=== PATIENT | female | born 2000 | race Two or more races ===

== ENCOUNTER → 2023-11-19 | Outpatient (CLI) | payer OTHER ==
[2023-11-19 09:32] LABS: Urine Bacteria None Seen /hpf (None Seen)
[2023-11-19 09:44] LABS: Urine Blood Negative /uL (Negative); Urine Clarity Clear (Clear); Urine Color Yellow (Yellow); Urine Mucus FEW (None Seen); Urine Protein, UAD Negative (Negative); Urine Specific Gravity 1.028 (1.001-1.035); Urine Urobilinogen Normal (Negative); Urine WBC 2 /hpf (0 - 5); Urine pH 5.5 (5.0-9.0)
[2023-11-19 09:49] LABS: Basophils # (auto) 0.1 10 ^3/uL (0-0.2); Basophils % (auto) 0.6 % (0.0-2.0); Eosinophils # (auto) 0.1 10 ^3/uL (0-0.8); Eosinophils % (auto) 0.7 % (0.0-7.0); Hematocrit 42.5 % (36.0-46.0); Hemoglobin 14.7 g/dL (12.2-16.2); Lymphocytes # (auto) 1.8 10 ^3/uL (0.4-5.4); Lymphocytes % (auto) 16.6 % (10.0-50.0); Mean Corpuscular Hemoglobin 29.9 pg (28.0-32.0); Mean Corpuscular Hgb Conc. 34.5 g/dL (32.0-36.0); Mean Corpuscular Volume 86.7 fL (80.0-100.0); Monocytes # (auto) 0.5 10 ^3/uL (0-1.3); Monocytes % (auto) 4.9 % (0.0-12.0); Neutrophils # (auto) 8.3 10 ^3/uL (1.6-8.6); Neutrophils % (auto) 77.2 % (37.0-80.0); Platelet Count (auto) 192 10^3/uL (140-450); Red Cell Distribution Width 13.4 % (11.8-14.3); White Blood Cell 10.8 10^3/uL (4.4-10.8)
[2023-11-19 10:36] LABS: Alanine Aminotransferase 20 U/L (7-40); Albumin 4.6 g/dL (3.2-4.8); Alkaline Phosphatase 91 U/L (46-116); Anion Gap 5 (5-15); Aspartate Aminotransferase 12 U/L (13-40); BUN/Creatinine Ratio 16.9 (10.0-20.0); Blood Urea Nitrogen 12 mg/dL (9-23); Calcium 9.9 mg/dL (8.7-10.4); Carbon Dioxide 25 mmol/L (20-30); Chloride 109 mmol/L (98-107); Glucose 98 mg/dL (74-106); LDL Cholesterol 74 mg/dL (< 100); Potassium 4.4 mmol/L (3.5-5.1); Sodium 139 mmol/L (136-145); Triglycerides 91 mg/dL (< 150)
[2023-11-19 10:37] LABS: Bilirubin, Total 1.2 mg/dL (0.2-1.0); Cholesterol 118 mg/dL (< 200); HDL Cholesterol 37 mg/dL (40-59); Total Protein 7.6 g/dL (5.7-8.2)
== END | disposition home or self-care (01) ==
LOC: LAB 09:18
PROVIDERS: ATTEND Internal Medicine
DX: Z00.00 Encounter for general adult medical examination without abnormal findings (principal)
CPT/HCPCS: 36415; 80053; 80061; 81001; 83036; 83880; 84443; 85025

== ENCOUNTER → 2024-04-11 | Outpatient (CLI) | payer OTHER ==
[2024-04-12 07:06] LABS: HSV 1 IgG Antibody Non Reactive (Non Reactive); HSV 2 IgG Antibody Non Reactive (Non Reactive)
== END | disposition home or self-care (01) ==
LOC: LAB 12:11
PROVIDERS: ATTEND Nurse Practitioner Family
DX: Z20.2 Contact with and (suspected) exposure to infections with a predominantly sexual mode of transmission (principal)
CPT/HCPCS: 86695; 86696

== ENCOUNTER → 2024-07-26 | Day surgery (SDC) | payer OTHER, MEDICAID ==
[2024-07-22 13:02] LABS: Urine Bacteria None Seen /hpf (None Seen)
[2024-07-22 13:06] LABS: Basophils # (auto) 0.1 10 ^3/uL (0-0.2); Basophils % (auto) 0.5 % (0.0-2.0); Eosinophils # (auto) 0.1 10 ^3/uL (0-0.8); Eosinophils % (auto) 0.8 % (0.0-7.0); Hematocrit 40.8 % (36.0-46.0); Hemoglobin 13.9 g/dL (12.2-16.2); Lymphocytes % (auto) 17.7 % (10.0-50.0); Mean Corpuscular Hemoglobin 29.2 pg (28.0-32.0); Mean Corpuscular Hgb Conc. 34.2 g/dL (32.0-36.0); Mean Corpuscular Volume 85.5 fL (80.0-100.0); Monocytes # (auto) 0.6 10 ^3/uL (0-1.3); Monocytes % (auto) 4.9 % (0.0-12.0); Neutrophils # (auto) 8.7 10 ^3/uL (1.6-8.6); Neutrophils % (auto) 76.1 % (37.0-80.0); Platelet Count (auto) 194 10^3/uL (140-450); Red Blood Cells 4.77 10^6/uL (4.0-5.20); Red Cell Distribution Width 12.7 % (11.8-14.3); White Blood Cell 11.4 10^3/uL (4.4-10.8)
[2024-07-22 13:12] LABS: Urine Blood Negative /uL (Negative); Urine Clarity Clear (Clear); Urine Color Light-Yellow (Yellow); Urine Protein, UAD Negative (Negative); Urine Squamous Epithelial Cell FEW /hpf (<5); Urine Urobilinogen Normal (Negative); Urine pH 5.5 (5.0-9.0)
[2024-07-22 13:13] LABS: Urine WBC < 1 /HPF (0-5)
[2024-07-22 13:24] LABS: INR 0.97 (0.9-1.15); Partial Thromboplastin Time 26.5 SEC (24.5-34.5); Prothrombin Time 10.3 sec (9.3-11.8)
[2024-07-22 13:40] LABS: Alanine Aminotransferase 22 U/L (7-40); Albumin 4.7 g/dL (3.2-4.8); Alkaline Phosphatase 101 U/L (46-116); Anion Gap 12 (5-15); Aspartate Aminotransferase 15 U/L (13-40); BUN/Creatinine Ratio 16.7 (10.0-20.0); Bilirubin, Total 0.9 mg/dL (0.2-1.0); Blood Urea Nitrogen 11 mg/dL (9-23); Calcium 9.9 mg/dL (8.7-10.4); Carbon Dioxide 20 mmol/L (20-31); Chloride 107 mmol/L (98-107); Glucose 97 mg/dL (74-106); Potassium 3.6 mmol/L (3.5-5.1); Sodium 139 mmol/L (136-145); Total Protein 7.7 g/dL (5.7-8.2)
[~2024-07-26] VITALS: Ht 175.3 cm; Wt 92.1 kg
[~2024-07-26] MED LIST: ASPI1TAB20 PO; CEPH500C PO; DexAMETHasone SOD PHOS 10MG/1ML VIAL INJ ONE; HYDR-4902 PO; IBUP-1453 PO; METOCLOPRAMIDE HCL 5MG/ml INJ 2ml VIAL ONE; ONDANSETRON HCL 4 MG/2 ML VIAL ONE; ceFAZolin 2 GM/D5W50ml 50 ML IV ONE; fentaNYL CITRATE 100 MCG/2 ML VL ONE
[2024-07-26] MEDS: BUPIVACAINE 0.5% INJ 50ML VIAL IJ ONE (10:05)
[2024-07-26 10:30] VITALS: PULSE 85; RESP 12; TEMP 98.6; O2SAT 98
--- NOTE | 2024-07-26 10:49 | DVHOP2 ---
Operative Report - 2 Report Details Date: 07/26/24 Preop Diagnosis: Right wrist dorsal cyst ganglion Postop Diagnosis: Right wrist dorsal cyst ganglion Surgeon: Terry Rocha MD Tooth Cutter Pinion: RAMONA Winston Anesthesiologist: Dr Wadsworth Anesthesia: Mac Implant: None Consent: The patient was informed of the risks and benefits of the procedure. These include but are not limited to complications of anesthesia, postoperative infection, incomplete relief of symptoms, recurrence of symptoms, damage to blood vessels, nerves and tendons, deep venous thrombosis, pulmonary embolism and possible need for repeat surgery in the future. Complications: None Estimated Blood Loss: Less than 5 mL Indications for Surgery: The patient is a 24-year-old female who presented to the clinic with a history of right wrist pain. Clinical and radiological evaluation demonstrated small s welling on the dorsum of the wrist, this was clinically a ganglion cyst. Nonoperative and operative management options were discussed and initially recommended. She failed nonoperative management and surgery in the form of excision of the cyst was discussed with her. Benefits, risks and treatment alternatives were discussed. Specific complications of the surgery such as neurovascular injury, infection, arthrofibrosis, loss of limb or life were discussed. She decided to proceed with the surgical option. Name of Procedure Performed Right wrist dorsal cyst ganglion excision Procedure Details Procedure Details: The patient was identified in the preoperative holding area and the surgical site was marked. She was brought into the operating room and placed supine on the operating table. General anesthesia was administered. Intravenous antibiotics were given. The extremity was prepped and draped in the usual sterile manner. A time-out was called to confirm that anterior patient, the nature of surgery, the site of surgery, the availability of implants and x-rays and allergies to medications. A small incision was made over the prominence of the cyst on the dorsum of the wrist. This was a horizontal incision. The skin and the subcutaneous tissue were dissected. The deep fascia was incised. The cyst was identified. This was traced down to the wrist joint. It was through the carpal bones. The stalk was identified. This was excised in its entirety. A small rent was noted in the capsule that was loosely closed with Vicryl to prevent recurrence. Bovie cautery was used to coagulate. Adequate hemostasis was achieved. The tourniquet was released. The ganglion cyst was sent for pathology. Irrigation was given and the skin was closed in layers of 2-0 Vicryl and 3-0 Monocryl. Sterile dressing was applied. Specimen: Dorsal ganglion wrist cyst Condition Good Disposition Home TERRY ROCHA MD July 26, 2024 10:49
[2024-07-26 11:15] VITALS: BP 116/62; PULSE 74; RESP 13; O2SAT 96
[2024-07-26] MEDS: METOCLOPRAMIDE HCL 5MG/ml INJ 2ml VIAL IV ONE (11:20)
== END | disposition home or self-care (01) ==
LOC: SUR 07:02
PROVIDERS: ATTEND Orthopaedic Surgery Sports Medicine
DX: M67.431 Ganglion, right wrist (principal); Z79.899 Other long term (current) drug therapy
CPT/HCPCS: 25111; 36415; 80053; 81001; 84702; 85025; 85610; 85730; 88305; J0690; J1100; J2405; J2765; J3010; J3490